=== PATIENT | female | born 2000 | race Caucasian/White ===

== ENCOUNTER 2021-04-06 02:33 | Emergency (ER) | payer BC, SELFPAY ==
[2021-04-06] MEDS ORDERED: Ondansetron PF 4 MG/2 ML Vial ONE (03:03)
[2021-04-06 03:20] LABS: ALT (SGPT) 15 U/L (8-55); AST (SGOT) 19 U/L (5-30); Albumin 3.9 g/dL (3.5-5.0); Alcohol 245 mg/dL (Less than 10); Alkaline Phosphatase 55 U/L (40-100); Anion Gap 14 mmol/L (10-20); BUN (Urea Nitrogen) 9 mg/dL (8.4-21.0); Bilirubin, Total 0.7 mg/dL (0.2-1.2); Calc. Creatinine Clearance 0 mL/min (70-130); Calcium 8.2 mg/dL (7.8-10.44); Carbon Dioxide 20 mmol/L (22-29); Chloride 107 mmol/L (98-107); Globulin 2.3 g/dL (2.4-3.5); Glucose 124 mg/dL (70-105); Protein, Total 6.2 g/dL (6.0-8.3); Sodium 138 mmol/L (136-145)
[2021-04-06 03:29] LABS: Platelet Count 135 10x3/uL (150-450)
[2021-04-06 03:30] LABS: #Basophils 0.1 10x3/uL (0.0-0.2); #Monocytes 0.3 10x3/uL (0.0-1.1); #Neutrophils 5.6 10x3/uL (1.5-8.4); %Basophils 0.8 % (0.0-2.0); %Eosinophils 0.3 % (0.0-6.0); %Lymphocytes 17.3 % (18.0-47.0); %Monocytes 4.6 % (0.0-10.0); %Neutrophils 76.6 % (40.0-75.0); Hemoglobin 11.2 g/dL (12.0-15.5); Mean Corpuscular HGB CONC 33.7 g/dL (32.0-36.0); Mean Corpuscular Hemoglobin 30.6 pg (27.0-33.0); Mean Corpuscular Volume 90.7 fl (81.6-98.3); Mean Platelet Volume 9.5 fl (7.4-10.4); RBC Distribution Width 11.8 % (11.5-14.5); Red Blood Cell (RBC) Count 3.66 10x6/uL (3.90-5.03); White Blood Cell (WBC) Count 7.3 10x3/uL (3.5-10.5)
[2021-04-06 03:34] LABS: Platelet Clumps MODERATE; Platelet Morphology Comment PLT clumps seen-ADEQ
[2021-04-06 03:35] LABS: RBC Morphology Normal
== END 2021-04-06 04:44 | disposition home or self-care (01) ==
LOC: CSHERS 02:33
DX: F10.129 Alcohol abuse with intoxication, unspecified (principal); Y90.8 Blood alcohol level of 240 mg/100 ml or more
CPT/HCPCS: 80053; 80307; 85025; 96374; J2405